=== PATIENT | female | born 1940 | race Caucasian/White ===

== ENCOUNTER 2024-01-31 08:09 | Day surgery (SDC) | payer MEDICARE ==
[2024-01-25 12:13] LABS: BASOPHILS % (AUTO) 0.7 % (0-1); EOSINOPHILS # (AUTO) 0.1 X10'3 (0-0.9); EOSINOPHILS % (AUTO) 1.8 % (0-6); LYMPHOCYTES # (AUTO) 1.9 X10'3 (1.1-4.8); LYMPHOCYTES % (AUTO) 31.3 % (21-51); MEAN CORPUSCULAR HEMOGLOBIN 31.7 PG (27.0-31.0); MEAN CORPUSCULAR HGB CONC 32.8 g/dL (33.0-36.5); MEAN CORPUSCULAR VOLUME 96.8 FL (78-98); MONOCYTES # (AUTO) 0.7 X10'3 (0-0.9); MONOCYTES % (AUTO) 11.5 % (2-12); NEUTROPHILS # (AUTO) 3.2 X10'3 (1.8-7.7); NEUTROPHILS % (AUTO) 54.7 % (42-75); PRE OP HEMATOCRIT 45.9 % (35.0-45.0); PRE OP PLATELET COUNT 238 X10'3 (140-440); PRE OP WHITE BLOOD COUNT 5.9 10'3 (4.8-10.8); RED BLOOD COUNT 4.75 X10'6 (4.20-5.60); RED CELL DISTRIBUTION WIDTH 14.9 % (11.5-14.5)
[2024-01-25 12:20] LABS: ALBUMIN 4.3 G/DL (3.4-5.0); ALBUMIN/GLOBULIN RATIO 1.3 (1.1-1.5); ALKALINE PHOSPHATASE 54 IU/L (46-116); BLOOD UREA NITROGEN 16 MG/DL (7-18); BUN/CREATININE RATIO 27.1 (10.0-20.0); CALCIUM 9.1 MG/DL (8.5-10.1); CHLORIDE 104 MMOL/L (99-107); CREATININE 0.59 MG/DL (0.40-0.90); PRE OP ALT 13 U/L (30-65); PRE OP ANION GAP 8 (8-16); PRE OP AST 16 U/L (10-37); PRE OP BILIRUB, TOTAL 1.3 MG/DL (0.0-1.0); PRE OP GLUCOSE 99 MG/DL (70-104); PRE OP POTASSIUM 4.2 MMOL/L (3.4-5.1); PRE OP SODIUM 140 MMOL/L (135-145); TOTAL CARBON DIOXIDE 28.2 MMOL/L (24-32); TOTAL PROTEIN 7.6 G/DL (6.4-8.2); eGFR > 90 ML/MIN
[2024-01-31] VITALS (8 sets, daily range): BP systolic 131–153; BP diastolic 59–93; PULSE 61–78; RESP 12–16; TEMP 98; O2SAT 97–99
[~2024-01-31] VITALS: Ht 160 cm; Wt 53.8 kg
[~2024-01-31 08:09] MED LIST: TRAM50TA2 PO
[2024-01-31] MEDS: famotidine 20mg tablet PO ONE (09:18)
[2024-01-31] MEDS: cefazolin 2gm/D5W 100mL 100 ML IV ONE (09:19)
[2024-01-31] MEDS: ringers solution, lacted 1,000 ML IV SCH (09:19)
[2024-01-31] MEDS ORDERED: fentaNYL/PF 50MCG/1 ML 2ML syringe ONE (09:34)
[2024-01-31] MEDS ORDERED: midazolam 1 mg/ML 2ml injection ONE (09:35)
[2024-01-31] MEDS ORDERED: LIDOcaine 0.5% (5mg/ml) 50ml vial ONE (09:41)
[2024-01-31] MEDS ORDERED: propofol inj 20 ML IV ONE (09:41)
[2024-01-31] MEDS: BUPIVAcaine/PF 2.5mg/ml (0.25%) 10ml vial ONE (09:47)
[2024-01-31] MEDS ORDERED: HYDROmorphone/PF 0.2 MG/ML SYRINGE IV PRN ×2 (10:05)
[2024-01-31] MEDS ORDERED: morphine 4 MG/ML inj SYRINge IV PRN (10:05)
[2024-01-31] MEDS ORDERED: proCHLORperazine 10 MG/2 ml inj IV PRN (10:05)
[2024-01-31] MEDS ORDERED: ringers solution, lacted 1,000 ML IV SCH (10:05)
[2024-01-31] MEDS ORDERED: ondansetron/PF 4mg/2ml inj IV PRN (10:05)
[2024-01-31] MEDS: acetaminophen 1,000mg/100ml IV 100 ML IV ONE (10:51)
[2024-01-31] MEDS: morphine 2 MG/ML inj. syringe IV PRN (10:51)
== END 2024-01-31 11:15 | disposition home or self-care (01) ==
LOC: PRE-OP 08:09
PROVIDERS: ATTEND Orthopaedic Surgery Hand Surgery
DX: M72.0 Palmar fascial fibromatosis [Dupuytren] (principal); E78.5 Hyperlipidemia, unspecified; K21.9 Gastro-esophageal reflux disease without esophagitis; I20.9 Angina pectoris, unspecified; I25.2 Old myocardial infarction; M19.90 Unspecified osteoarthritis, unspecified site; Z85.3 Personal history of malignant neoplasm of breast; Z87.891 Personal history of nicotine dependence; Z79.891 Long term (current) use of opiate analgesic; Z79.899 Other long term (current) drug therapy; Z90.89 Acquired absence of other organs; Z98.890 Other specified postprocedural states
CPT/HCPCS: 26121; 36415; 80053; 82948; 85025; A6222; J0131; J0690; J2250; J2270; J2704; J3010; J3490; J7030; J7120; Z7506; Z7512; A4215; A4618; A6449; A7000

== ENCOUNTER 2024-09-01 13:31 | Outpatient (CLI) | payer MEDICARE | END 2024-09-01 23:59 | disposition home or self-care (01) | LOC: US 13:31 | PROVIDERS: ATTEND Physician Assistant | DX: N83.201 Unspecified ovarian cyst, right side (principal) | CPT/HCPCS: 76830; 76856; 93976 ==